=== PATIENT | male | born 1955 | race Caucasian/White ===

== ENCOUNTER 2017-07-30 07:13 | Day surgery (SDC) | payer OTHER, SELFPAY ==
--- NOTE | 2017-07-29 21:44 | Pre-Procedure Note/Attestation ---
Pre-Procedure Note/Attestation Complete Prior to Procedure Planned Procedure: right - Removal of cataract and placement of intraocular lens, right eye Procedure Narrative: Removal of cataract and placement of intraocular lens, right eye Indications for Procedure Pre-Operative Diagnosis: Cataract, combined, right eye Attestation I attest that I discussed the nature of the procedure; its benefits; risks and complications; and alternatives (and the risks and benefits of such alternatives ), prior to the procedure, with the patient (or the patient's legal hostess party sales representative). I attest that, if there was a reasonable possibility of needing a blood transfusion, the patient (or the patient's legal hostess party sales representative) was given the [place] Department of Health Services standardized written summary, pursuant to the [place] Blood Safety Act ([place] Health and Safety Code # 1645, as amended). I attest that I re-evaluated the patient just prior to the surgery and that there has been no change in the patient's H&P, except as documented below: Joby Webber MD Jul 29, 2017 21:44
[2017-07-30] VITALS (9 sets, daily range): BP systolic 117–140; BP diastolic 61–71
[~2017-07-30] VITALS: Ht 182.9 cm; Wt 108.9 kg
[~2017-07-30 07:13] MED LIST: LIPITOR20 MG ORAL; LISINOPRIL2.5 MG ORAL; Pred Forte 1% Opth Susp 1ml RIGHT EYE ONE
[2017-07-30] MEDS ORDERED: Phenylephrine 10% Opth Soln 5ml ONE (07:43)
[2017-07-30] MEDS ORDERED: Akten 3.5% 1ml Btl ONE (07:44)
[2017-07-30] MEDS ORDERED: Cyclopentolate 1% Opth Sol 2ml ONE (07:44)
[2017-07-30] MEDS ORDERED: Tropicamide 1% Opth 15ml Soln ONE (07:44)
[2017-07-30] MEDS: Akten 3.5% 1ml Btl RIGHT EYE SCH ×3 (07:50→08:07)
[2017-07-30] MEDS: Tropicamide 1% Opth 15ml Soln RIGHT EYE SCH ×3 (07:50→08:07)
[2017-07-30] MEDS: Cyclopentolate 1% Opth Sol 2ml RIGHT EYE SCH ×3 (07:50→08:07)
[2017-07-30] MEDS: Ciprofloxacin Opth Soln 2.5ml RIGHT EYE SCH ×3 (07:50→08:07)
[2017-07-30] MEDS: Phenylephrine 10% Opth Soln 5ml RIGHT EYE SCH ×3 (07:51→08:08)
[2017-07-30] MEDS ORDERED: BSS 500ml btl ONE (08:23)
[2017-07-30] MEDS ORDERED: Maxitrol Opth Oint 3.5gm ONE (08:24)
[2017-07-30] MEDS ORDERED: Fluorescein Strips ONE (08:24)
[2017-07-30] MEDS ORDERED: Tetracaine 0.5% Opth 4ml Soln ONE (08:24)
[2017-07-30] MEDS ORDERED: Lidocaine 1% MPF 10mg/ml 5ml ONE (08:24)
[2017-07-30] MEDS ORDERED: Dexamethasone 4mg/ml vial ONE (08:24)
[2017-07-30] MEDS ORDERED: Timolol 0.5% Op Soln 2.5ml ONE (08:24)
[2017-07-30] MEDS ORDERED: Lidocaine 2% MPF 5ml Vial INJ ONE (08:25)
[2017-07-30] MEDS ORDERED: EPINEPHrine 1mg/1ml Amp ONE (08:25)
[2017-07-30] MEDS ORDERED: BSS 15ml BTL ONE (08:26)
[2017-07-30] MEDS ORDERED: Povidone-Iodine 5% opth solution ONE ×2 (08:26→10:03)
[2017-07-30] MEDS ORDERED: Sodium Hyaluronate 10 mg/ml 0.85ml ONE ×2 (08:26→10:03)
[2017-07-30] MEDS ORDERED: Carbachol 0.01% Op Soln 1.5ml vial ONE (08:26)
[2017-07-30] MEDS ORDERED: LR 1000ml ONE (09:00)
[2017-07-30] MEDS ORDERED: Midazolam 2mg/2ml Inj ONE (09:00)
[2017-07-30] MEDS ORDERED: fentaNYL 100 mcg/2 mL IV ONE (09:00)
[2017-07-30] MEDS ORDERED: Sterile Water Irrig 1000ml IRRIG ONE (09:00)
[2017-07-30] MEDS ORDERED: NS Irrig 1000ml ONE (09:00)
--- NOTE | 2017-07-30 09:58 | Brief Operative Note ---
Immediate Post Operative Note Operative Note Pre-op Diagnosis: Cataract, combined, right eye Procedure: Phaco PC IOL, OD Post-op Diagnosis: same as pre-op Surgeon: Dejan Webber MD MS Computer Installation Engineer: none Anesthesiologist: Dr gr Anesthesia: local, MAC Specimen: none Complications: none Fluids: as noted in chart Implant(s) used?: Yes - tecnis zct 150 power 17.0 Joby Webber MD Jul 30, 2017 09:58
--- NOTE | 2017-07-30 09:59 | Discharge Instructions ---
Discharge Instructions Discharge Instructions Follow Up Orders Continue pre op eye drops Wear shield at all times except to place eye drops followup tomorrow in Dr Webber's office For Congestive Heart Failure Reminder Report to your physician any weight gain of 5 pounds or more in one week. Joby Webber MD Jul 30, 2017 09:59
--- NOTE | 2017-07-30 19:15 | Operative Note - Dictated ---
DATE OF OPERATION: 07/30/2017 SURGEON: Joby Webber M.D. PUMPMAN SURGEON: None. ANESTHESIOLOGIST: Dr. Carrion. ANESTHESIA: Local/standby/monitored anesthesia care. PREOPERATIVE DIAGNOSIS: Cataract, combined, right eye. POSTOPERATIVE DIAGNOSIS: Cataract, combined, right eye. PROCEDURES: 1. Phacoemulsification of cataract, right eye. 2. Placement of posterior chamber intraocular lens, right eye (model Vincent Tecnis [id number], power 17.0). SPECIMENS: None. COMPLICATIONS: None. INDICATIONS FOR SURGERY: The patient has had the painless progressive decrease in the visual acuity in the right eye secondary to cataract. The patient understands the risks of surgery including infection, bleeding, need for further surgery, loss of vision, no improvement in vision, loss of the eye, loss of life, glaucoma, retinal detachment, and understands these risks and elects to proceed with surgery. FINDINGS: The patient had a +2 to 3 central nuclear cataract with a +1 to 2 cortical cataract. There was +1 anterior subcapsular cataract also. OPERATIVE NOTE: After informed consent was obtained, the patient was brought into the operating room and placed in the supine position. A time-out was performed and all criteria were met and everyone in the room agreed. Tetracaine eyedrops were placed in the right eye. The patient sat up and looked straight across at the wall and the 9 o'clock, 3 o'clock, and 12 o'clock limbus was marked. The patient then laid down and the right eye was draped and prepped in a sterile manner for ocular surgery. A lid speculum was placed in the eye. A 1% lidocaine preservative-free was injected at the approximate 9:30 limbus. A conjunctiva peritomy from approximately 9 o'clock to 10 o'clock was made and dissected posteriorly. Hemostasis was maintained with bipolar cautery. A 2.6 mm limbal incision was made centered at approximately 9:30 and dissected anteriorly. Paracentesis was made at approximately 12 o'clock and Shugarcaine was injected into the anterior chamber followed by Healon. The anterior chamber was then entered using a 2.6 mm keratome through the limbal incision. An anterior capsulorrhexis was then performed. Hydrodissection and hydrodelineation of the lens was then performed. The lens was then phacoemulsified using divide and conquer four-quadrant technique. Residual cortical material was then aspirated. The lens was taken from its package, placed into the cartridge, and the tip of the cartridge was placed through the limbal incision and the lens was injected into the capsular bag. Healon was then aspirated from the anterior chamber and capsular bag. The toric intraocular lens was aligned at approximate 92 degree meridian. This was noted and marked just prior to starting the procedure while the patient was lying down and draped and prepped where the corneal markers were used to willian the 90 degree meridian. After the lens was well aligned, Healon was removed from the anterior chamber and capsular bag. One 10-0 nylon interrupted suture was then placed through the limbal incision. The knot was rotated and buried. Care was taken during the entire procedure not to touch the endothelium. The wounds were checked and found to be watertight. The lens was rechecked and the optic and both haptics were noted to be in the capsular bag and the lens was aligned along the 92 degree meridian. The conjunctiva was then closed with forceps cautery. The lid speculum and drapes were removed from the eye and a drop of diluted Betadine was placed on the surface of the eye and irrigated away followed by ciprofloxacin, Pred Forte, and Maxitrol ointment. The shield was then placed on the eye. The patient tolerated the procedure well and left the operating room awake, alert, and in stable condition. Joby Webber M.D. DR: BANDAR JOB#: [id number] CC:
== END 2017-07-30 11:10 | disposition home or self-care (01) ==
LOC: SUR 07:13
DX: H25.11 Age-related nuclear cataract, right eye (principal); H25.011 Cortical age-related cataract, right eye; H25.031 Anterior subcapsular polar age-related cataract, right eye; Z83.3 Family history of diabetes mellitus; Z80.3 Family history of malignant neoplasm of breast; Z82.49 Family history of ischemic heart disease and other diseases of the circulatory system; I10 Essential (primary) hypertension; I11.9 Hypertensive heart disease without heart failure
CPT/HCPCS: 66984; J0171; J1100; J2250; J3010; J7120; V2632; 94003; 94150

== ENCOUNTER 2017-10-29 10:11 | Day surgery (SDC) | payer OTHER, SELFPAY ==
[2017-10-29] VITALS (7 sets, daily range): BP systolic 119–142; BP diastolic 58–76
[~2017-10-29] VITALS: Ht 182.9 cm; Wt 108.9 kg
--- NOTE | 2017-10-29 00:06 | Pre-Procedure Note/Attestation ---
Pre-Procedure Note/Attestation Complete Prior to Procedure Planned Procedure: left - Removal of cataract and placement of intraocular lens , left eye Procedure Narrative: Removal of cataract and placement of intraocular lens, left eye Indications for Procedure Pre-Operative Diagnosis: Combined cataract, left eye Attestation I attest that I discussed the nature of the procedure; its benefits; risks and complications; and alternatives (and the risks and benefits of such alternatives ), prior to the procedure, with the patient (or the patient's legal chain sales representative). I attest that, if there was a reasonable possibility of needing a blood transfusion, the patient (or the patient's legal chain sales representative) was given the [place] Department of Health Services standardized written summary, pursuant to the [place] Blood Safety Act ([place] Health and Safety Code # 1645, as amended). I attest that I re-evaluated the patient just prior to the surgery and that there has been no change in the patient's H&P, except as documented below: Joby Webber MD Oct 29, 2017 00:06
[~2017-10-29 10:11] MED LIST changes: -Pred Forte 1% Opth Susp 1ml RIGHT EYE ONE
[2017-10-29] MEDS ORDERED: Fluorescein Strips ONE (11:22)
[2017-10-29] MEDS ORDERED: Carbachol 0.01% Op Soln 1.5ml vial ONE (11:22)
[2017-10-29] MEDS ORDERED: EPINEPHrine 1mg/1ml Amp ONE (11:22)
[2017-10-29] MEDS ORDERED: Lidocaine 1% MPF 10mg/ml 5ml ONE (11:22)
[2017-10-29] MEDS ORDERED: BSS 15ml BTL ONE (11:23)
[2017-10-29] MEDS ORDERED: Pred Forte 1% Opth Susp 1ml ONE (11:23)
[2017-10-29] MEDS ORDERED: Povidone-Iodine 5% opth solution ONE (11:23)
[2017-10-29] MEDS ORDERED: Tetracaine 0.5% Opth 4ml Soln ONE (11:23)
[2017-10-29] MEDS ORDERED: BSS 500ml btl ONE (11:23)
[2017-10-29] MEDS ORDERED: Sodium Hyaluronate 10 mg/ml 0.85ml ONE (11:23)
[2017-10-29] MEDS ORDERED: Maxitrol Opth Oint 3.5gm ONE (11:23)
[2017-10-29] MEDS ORDERED: Timolol 0.5% Op Soln 2.5ml ONE (11:23)
[2017-10-29] MEDS ORDERED: Ciprofloxacin Opth Soln 2.5ml ONE (11:28)
[2017-10-29] MEDS ORDERED: Cyclopentolate 1% Opth Sol 2ml ONE (11:28)
[2017-10-29] MEDS ORDERED: Phenylephrine 10% Opth Soln 5ml ONE (11:28)
[2017-10-29] MEDS ORDERED: Tropicamide 1% Opth 15ml Soln ONE (11:28)
[2017-10-29] MEDS ORDERED: Akten 3.5% 1ml Btl ONE (11:28)
[2017-10-29] MEDS ORDERED: Midazolam 2mg/2ml Inj ONE (11:32)
[2017-10-29] MEDS ORDERED: Propofol 200mg/20ml IV ONE (11:32)
[2017-10-29] MEDS: Tropicamide 1% Opth 15ml Soln LEFT EYE SCH ×3 (11:35→11:57)
[2017-10-29] MEDS: Phenylephrine 10% Opth Soln 5ml LEFT EYE SCH ×3 (11:35→11:57)
[2017-10-29] MEDS: Cyclopentolate 1% Opth Sol 2ml LEFT EYE SCH ×3 (11:36→11:58)
[2017-10-29] MEDS: Ciprofloxacin Opth Soln 2.5ml LEFT EYE SCH ×3 (11:37→11:58)
[2017-10-29] MEDS: Akten 3.5% 1ml Btl LEFT EYE SCH ×3 (11:37→11:58)
[2017-10-29] MEDS ORDERED: Vit B12 PO (12:26)
[2017-10-29] MEDS ORDERED: Vit D3 PO (12:28)
[2017-10-29] MEDS ORDERED: FISH OIL CAP1000 MG ORAL (12:28)
[2017-10-29] MEDS ORDERED: LR 1000ml 1,000 ML IVLG SCH (13:34)
--- NOTE | 2017-10-29 13:34 | Anethesia Preoperative Eval ---
Anesthesia Pre-op PMH/ROS General Date of Evaluation: Oct 29, 2017 Time of Evaluation: 12:45 Anesthesiologist: Cornelio ASA Score: ASA 2 Mallampati Score Class I : Soft palate, uvula, fauces, pillars visible Class II: Soft palate, uvula, fauces visible Class III: Soft palate, base of uvula visible Class IV: Only hard plate visible Mallampati Classification: Class II Surgeon: Lawanda Diagnosis: L eye cataract Surgical Procedure: L eye cataract extraction Anesthesia History: none Family History: no anesthesia problems Allergies: Coded Allergies: No Known Allergies (Unverified , 07/29/17) Medications: see eMAR Past Medical History Cardiovascular: Reports: HTN - stable, valve dz - Mitral valve prolaps ?, other - CHF ? ; Denies: CAD, VT, arrhythmia Pulmonary: Denies: asthma, COPD, MIKAEL, other Gastrointestinal/Genitourinary: Reports: GERD - mild Neurologic/Psychiatric: Denies: dementia, CVA, depression/anxiety, TIA, other Endocrine: Denies: DM, hypothyroidism, steroids, other HEENT: Reports: cataract (L), cataract (R); Denies: glaucoma, NISQUALLY (L), NISQUALLY (R), other Hematology/Immune: Denies: anemia, DVT, bleeding disorder, other Musculoskeletal/Integumentary: Denies: OA, RA, DJD, DDD, edema, other Other: other - overweight PMH Narrative: as above PSxH Narrative: T&A, R eye cataract Anesthesia Pre-op Phys. Exam Physician Exam Last Vital Signs Date Time Temp Pulse Resp B/P (MAP) Pulse Ox O2 Delivery O2 Flow Rate FiO2 10/29/17 11:15 97.9 60 18 122/66 94 Room Air 97.9 Constitutional: NAD Neurologic: CN 2-12 intact Cardiovascular: RRR, other - bilateral LE edema gr.2. Respiratory: CTA, other - Some SB on fast walking Gastrointestinal: S/NT/ND Airway Exam Mallampati Score: Class II MO: full Neck: flexible ROM: full Teeth: intact Dentures: no upper, no lower Anesthesia Pre-op A/P Labs see chart Studies Pre-op Studies: EKG - NSR, CXR - WNL Risk Assessment & Plan Assessment: ASA 2 Plan: MAC Status Change Before Surgery: No Dakota Grimes MD Oct 29, 2017 13:34
[2017-10-29] MEDS ORDERED: fentaNYL 100 mcg/2 mL IV PRN (13:45)
[2017-10-29] MEDS ORDERED: DiphenhydrAMINE 50mg/ml Inj IVP PRN (13:45)
--- NOTE | 2017-10-29 14:25 | Discharge Instructions ---
Discharge Instructions Discharge Instructions Follow Up Orders Wear patch and shield until tomorrow morning followup in Dr Webber's office tomorrow For Congestive Heart Failure Reminder Report to your physician any weight gain of 5 pounds or more in one week. Joby Webber MD Oct 29, 2017 14:25
--- NOTE | 2017-10-29 14:28 | Brief Operative Note ---
Immediate Post Operative Note Operative Note Pre-op Diagnosis: Combined cataract, left eye Procedure: Phaco PC IOL, OS Post-op Diagnosis: same as pre-op Surgeon: Fawn Webber MD Anesthesiologist: Dr Grimes Anesthesia: local, MAC Specimen: none Complications: none Fluids: see chart Implant(s) used?: Yes - messer zct 1.50 19.0 Joby Webber MD Oct 29, 2017 14:28
[2017-10-29] MEDS ORDERED: LR 1000ml ONE (15:00)
[2017-10-29] MEDS ORDERED: Sterile Water Irrig 1000ml IRRIG ONE (15:00)
[2017-10-29] MEDS ORDERED: NS Irrig 1000ml ONE (15:00)
[2017-10-29] MEDS ORDERED: fentaNYL 100 mcg/2 mL IV ONE (15:00)
--- NOTE | 2017-11-06 02:15 | Operative Note - Dictated ---
DATE OF OPERATION: 10/29/2017 NOTE: "POOR AUDIO QUALITY" SURGEON: Joby Webber M.D. SERVICE COUNTER CASHIER SURGEON: None. ANESTHESIOLOGIST: Dakota Grimes M.D. ANESTHESIA: Local/standby/monitored anesthesia care. PREOPERATIVE DIAGNOSIS: Cataract, combined, left eye. PREOPERATIVE DIAGNOSIS: Cataract, combined, left eye. PROCEDURE: 1. Phacoemulsification of cataract. 2. Placement of posterior chamber intraocular lens, left eye (model Vincent ZCT 1.50, power of 19.0). SPECIMENS: None. COMPLICATIONS: None. INDICATIONS FOR SURGERY: The patient has had painless progressive decrease in the visual acuity in the left eye secondary to cataract. The patient understands the risks of surgery including infection, bleeding, need for further surgery, loss of vision, no improvement in vision, loss of the eye, loss of life, glaucoma, retinal detachment, understands these risks and elects to proceed with surgery. FINDINGS: The patient had a +2 nuclear cataract as well as +2 cortical cataract. OPERATIVE NOTE: After informed consent was obtained, the patient was brought into the operating room. Tetracaine drops were applied to the left eye. The patient sat up from the operative bed and calderon on the left eye at 9 o'clock, 3 o'clock, and 12 o'clock were made. The patient was then laid down on the bed and the left eye was then draped and prepped in sterile manner for ocular surgery. A time-out was made and all criteria were met and everyone in the room agreed. The left eye was then draped and prepped in sterile manner for ocular surgery. A lid speculum was placed in the eye. Markers were used for the surface of the eye to willian the appropriate axis for placement of the toric intraocular lens. A 1% lidocaine preservative-free was injected at the approximate 2 o'clock limbus. A conjunctival peritomy from approximately 2 o'clock to 3 o'clock was made and dissected posteriorly. Hemostasis was maintained with bipolar cautery. A 2.6-mm limbal incision was made centered at approximately 2:30 and dissected anteriorly. Paracentesis was made at approximately 5:30 and Shugarcaine was injected into the anterior chamber followed by Healon. The anterior chamber was then entered using a 2.6 mm keratome through the limbal incision and the anterior capsulorrhexis was then performed. Hydrodissection and hydrodelineation of the lens was then performed. The lens was then phacoemulsified using divide and conquer four-quadrant technique. Residual cortical material was then aspirated. Healon was injected into the anterior chamber and capsular bag. The lens was taken from its package, placed into the cartridge, and the tip of the cartridge then was placed through the limbal incision and the lens was injected into the capsular bag and centered nicely with a [place] hook. Healon was then aspirated from the anterior chamber and capsular bag. The lens was positioned according to the calculated axis for the toric lens. One 10-0 nylon interrupted suture was then placed through the limbal incision and the knot was rotated and buried. Care was taken during the entire procedure not to touch the endothelium. The wounds were checked and found to be watertight as well as paracentesis wound. The intraocular lens was inspected and found to be at the correct axis as well as both haptics in the bag as well as the optic. The conjunctiva was then closed with forceps cautery. The lid speculum and drapes were removed from the eye and drops of moxifloxacin and Pred Forte were applied to the eye followed by Maxitrol ointment and shield. The patient tolerated the procedure well and left the operating room awake, alert, and in stable condition. Note: the center of the axis, marker was covered with a . This made the central cornea slightly difficult to view through to see the lens. This area was then irrigated profusely and it took a little extra time before starting the case where this cleared so that the surgery can be carried out safely. Joby Webber M.D. DR: CLARISA JOB#: [id number] CC:
== END 2017-10-29 15:35 | disposition home or self-care (01) ==
LOC: SUR 10:11
DX: H25.812 Combined forms of age-related cataract, left eye (principal); I10 Essential (primary) hypertension; K21.9 Gastro-esophageal reflux disease without esophagitis; E66.3 Overweight
CPT/HCPCS: 66984; J0171; J2250; J2704; J3010; J7120; V2632; 94003; 94150